=== PATIENT | male | born 1950 | race Caucasian/White ===

== ENCOUNTER 2019-08-13 08:18 | Outpatient (CLI) | payer OTHER | END 2019-08-13 08:19 | disposition EMS.NT | LOC: EMS 08:18 | PROVIDERS: ATTEND Surgery | DX: M25.562 Pain in left knee (principal); R50.9 Fever, unspecified ==

== ENCOUNTER 2019-08-13 10:03 | Emergency (ER) | payer OTHER ==
[2019-08-13 10:41] LABS: BASOPHILS % (AUTO) 0.5 %; EOSINOPHILS % (AUTO) 0.9 %; HGB - HEMOGLOBIN 13.6 g/dL (14.0-18.0); LYMPHOCYTES % (AUTO) 4.4 %; MEAN CORPUSCULAR HEMOGLOBIN 31.9 pg (27.0-31.0); MEAN CORPUSCULAR HGB CONC 34.5 g/dL (32.0-36.0); MEAN CORPUSCULAR VOLUME 92.5 fL (80.0-94.0); MEAN PLATELET VOLUME 10.3 fL (7.4-11.4); MONOCYTES % (AUTO) 4.6 %; NEUTROPHILS % (AUTO) 88.7 %; PLT - PLATELET COUNT 148 10^3/uL (130-450); RED BLOOD COUNT 4.26 10^6/uL (4.70-6.10); RED CELL DISTRIBUTION WIDTH 12.2 % (12.0-15.0); WHITE BLOOD COUNT 11.6 x10^3/uL (4.8-10.8)
[2019-08-13 10:45] LABS: ALBUMIN 3.9 g/dL (3.2-5.5); ALBUMIN/GLOBULIN RATIO 0.9 (1.0-2.2); BILIRUBIN,TOTAL 1.8 mg/dL (0.2-1.0); CREATININE 1.1 mg/dL (0.6-1.2); TOTAL PROTEIN 8.2 g/dL (6.7-8.2)
--- NOTE | 2019-08-13 10:53 | ED Physician Documentation ---
History of Present Illness - Stated complaint Stated Complaint: KNEE PX/BODY ACHES - Chief complaint Chief Complaint: Ext Problem - History obtained from History obtained from: Patient - History of Present Illness Timing: How many days ago (4) Pain level max: 9 Pain level now: 9 - Additonal information Additional information: 68-year-old male presents to the emergency department stating that he has left knee pain, swelling and a fever for the past 4 days. 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 Last was 2011. No new injuries. He states he is unable to bear any weight or move the knee at all. Worse with movement. Nothing makes it better. Review of Systems Ten Systems: 10 systems reviewed and negative Constitutional: reports: Fever, Chills Respiratory: denies: Cough GI: denies: Vomiting, Diarrhea Skin: denies: Rash Musculoskeletal: denies: Neck pain, Back pain Neurologic: denies: Headache PD PAST MEDICAL HISTORY - Past Medical History Past Medical History: Yes Cardiovascular: Hypertension Endocrine/Autoimmune: Type 2 diabetes - Past Surgical History Past Surgical History: Yes Ortho: Knee replacement - Present Medications Home Medications: Ambulatory Orders Medication Instructions Recorded Confirmed Aspirin [Adult Low Dose Aspirin EC] 81 mg PO DAILY 08/13/19 08/13/19 Lisinopril [Zestril] 20 mg PO DAILY 08/13/19 08/13/19 Metoprolol Succinate [Toprol Xl] 25 mg PO DAILY 08/13/19 08/13/19 Oseltamivir [Tamiflu] 75 mg PO BID 08/13/19 08/13/19 Simvastatin [Zocor] 80 mg PO DAILY PM 08/13/19 08/13/19 hydroCHLOROthiazide 25 mg PO DAILY 08/13/19 08/13/19 [Hydrochlorothiazide] metFORMIN [Glucophage] 1,000 mg PO DAILY PM 08/13/19 08/13/19 - Allergies Allergies/Adverse Reactions: Allergies Allergy/AdvReac Type Severity Reaction Status Date / Time No Known Drug Allergies Allergy Verified 08/13/19 10:41 PD ED PE NORMAL - Vitals Vital signs reviewed: Yes - General General: Alert and oriented X 3, No acute distress, Well developed/nourished - HEENT HEENT: PERRL, Moist mucous membranes - Neck Neck: Supple, no meningeal sign - Cardiac Cardiac: RRR, Strong equal pulses - Respiratory Respiratory: No respiratory distress, Clear bilaterally - Abdomen Abdomen: Soft, Non tender, Non distended - Derm Derm: Warm and dry, No rash - Extremities Extremities: No edema, Other (Tender to palpation with diffuse swelling about the left knee. Unable to move the knee at all. Neurovascularly intact. knee effusion) - Neuro Neuro: Alert and oriented X 3 - Psych Psych: Normal mood, Normal affect Results - Vitals Vitals: Vital Signs - 24 hr 08/13/19 08/13/19 08/13/19 10:09 10:30 11:06 Temperature 38.4 C H Heart Rate 123 H 108 H 108 H Respiratory 18 15 15 Rate Blood Pressure 162/113 H 168/88 H 154/88 H O2 Saturation 98 97 96 08/13/19 08/13/19 08/13/19 11:30 12:00 12:08 Temperature 37.6 C H Heart Rate 99 96 Respiratory 15 16 Rate Blood Pressure 167/92 H 148/72 H O2 Saturation 94 93 08/13/19 08/13/19 08/13/19 12:30 13:00 13:30 Temperature Heart Rate 91 84 81 Respiratory 15 13 15 Rate Blood Pressure 140/58 H 140/72 H 117/91 H O2 Saturation 95 96 95 08/13/19 14:00 Temperature Heart Rate 82 Respiratory 11 L Rate Blood Pressure 137/72 H O2 Saturation 97 Oxygen O2 Source Room air - Labs Labs: Laboratory Tests 08/13/19 08/13/19 08/13/19 10:23 10:23 10:23 WBC 11.6 H RBC 4.26 L Hgb 13.6 L Hct 39.4 L MCV 92.5 MCH 31.9 H MCHC 34.5 RDW 12.2 Plt Count 148 MPV 10.3 Neut # (Auto) Not Reportable Lymph # (Auto) Not Reportable Tama # (Auto) Not Reportable Eos # (Auto) Not Reportable Baso # (Auto) Not Reportable Absolute Nucleated RBC Not Reportable Total Counted 100 Band Neuts % (Manual) 15 H Reactive Lymphs % (Man) 8 Abnorm Lymph % (Manual) 0 Nucleated RBC % Not Reportable Neutrophils # (Manual) 9.7 H Lymphocytes # (Manual) 1.4 L Monocytes # (Manual) 0.5 Eosinophils # (Manual) 0.0 Basophils # (Manual) 0.0 Differential Comment MANUAL DIFFERENTIAL Manual Slide Review Indicated RBC Morph Micro Appear 1+ ANISOCYTOSIS ESR PT 12.5 INR 1.1 APTT 26.4 Sodium 129 L Potassium 3.4 L Chloride 93 L Carbon Dioxide 21 Anion Gap 15.0 H BUN 17 Creatinine 1.1 Estimated GFR (MDRD) 67 L Glucose 272 H Lactic Acid Calcium 9.0 Total Bilirubin 1.8 H AST 25 ALT 21 Alkaline Phosphatase 56 C-Reactive Protein Total Protein 8.2 Albumin 3.9 Globulin 4.3 H Albumin/Globulin Ratio 0.9 L Lipase 20 L Urine Color Urine Clarity Urine pH Ur Specific [place] Urine Protein Urine Glucose (UA) Urine Ketones Urine Occult Blood Urine Nitrite Urine Bilirubin Urine Urobilinogen Ur Leukocyte Esterase Urine RBC Urine WBC Ur Squamous Epith Cells Urine Bacteria Ur Microscopic Review Urine Culture Comments 08/13/19 08/13/19 08/13/19 10:23 10:23 10:23 WBC RBC Hgb Hct MCV MCH MCHC RDW Plt Count MPV Neut # (Auto) Lymph # (Auto) Tama # (Auto) Eos # (Auto) Baso # (Auto) Absolute Nucleated RBC Total Counted Band Neuts % (Manual) Reactive Lymphs % (Man) Abnorm Lymph % (Manual) Nucleated RBC % Neutrophils # (Manual) Lymphocytes # (Manual) Monocytes # (Manual) Eosinophils # (Manual) Basophils # (Manual) Differential Comment Manual Slide Review RBC Morph Micro Appear ESR 79 H PT INR APTT Sodium Potassium Chloride Carbon Dioxide Anion Gap BUN Creatinine Estimated GFR (MDRD) Glucose Lactic Acid 3.1 H* Calcium Total Bilirubin AST ALT Alkaline Phosphatase C-Reactive Protein 41.9 H Total Protein Albumin Globulin Albumin/Globulin Ratio Lipase Urine Color Urine Clarity Urine pH Ur Specific [place] Urine Protein Urine Glucose (UA) Urine Ketones Urine Occult Blood Urine Nitrite Urine Bilirubin Urine Urobilinogen Ur Leukocyte Esterase Urine RBC Urine WBC Ur Squamous Epith Cells Urine Bacteria Ur Microscopic Review Urine Culture Comments 08/13/19 08/13/19 11:07 13:42 WBC RBC Hgb Hct MCV MCH MCHC RDW Plt Count MPV Neut # (Auto) Lymph # (Auto) [place] # (Auto) Eos # (Auto) Baso # (Auto) Absolute Nucleated RBC Total Counted Band Neuts % (Manual) Reactive Lymphs % (Man) Abnorm Lymph % (Manual) Nucleated RBC % Neutrophils # (Manual) Lymphocytes # (Manual) Monocytes # (Manual) Eosinophils # (Manual) Basophils # (Manual) Differential Comment Manual Slide Review RBC Morph Micro Appear ESR PT INR APTT Sodium Potassium Chloride Carbon Dioxide Anion Gap BUN Creatinine Estimated GFR (MDRD) Glucose Lactic Acid 1.0 Calcium Total Bilirubin AST ALT Alkaline Phosphatase C-Reactive Protein Total Protein Albumin Globulin Albumin/Globulin Ratio Lipase Urine Color YELLOW Urine Clarity HAZY Urine pH 5.5 Ur Specific [place] >=1.030 H Urine Protein 100 H Urine Glucose (UA) >=1000 H Urine Ketones 15 H Urine Occult Blood SMALL H Urine Nitrite NEGATIVE Urine Bilirubin NEGATIVE Urine Urobilinogen 0.2 (NORMAL) Ur Leukocyte Esterase NEGATIVE Urine RBC 0-5 Urine WBC 0-3 Ur Squamous Epith Cells RARE Squamous Urine Bacteria Moderate H Ur Microscopic Review INDICATED Urine Culture Comments INDICATED - Rads (name of study) cxr Radiology: Prelim report reviewed, EMP read contemporaneously, See rad report (No acute intrathoracic plain film abnormality. ) L knee xray Radiology: Prelim report reviewed, EMP read contemporaneously, See rad report ( No evidence of fracture, dislocation, or hardware dysfunction. ) PD MEDICAL DECISION MAKING - ED course Complexity details: reviewed results, re-evaluated patient, considered differential, d/w patient ED course: Patient with a septic artificial knee joint of the left knee. Accepted by Dr. Caden Brasher at [facility] @1245, coordinated with Elias Beatty [facility]. Patient was given IV fluids, Vanco, cefepime. Blood cultures drawn. Lactate decreased after IV fluids. Patient is feeling better. Pain well controlled with Dilaudid. COBRA forms completed. This document was made in part using voice recognition software. While efforts are made to proofread this document, sound alike and grammatical errors may occur. Departure - Departure Disposition: 02 Transfer Acute Care Hosp Clinical Impression: Septic joint of left knee joint Qualifiers: Septic arthritis organism: due to unspecified organism Qualified Code(s): M00.9 - Pyogenic arthritis, unspecified Sepsis Qualifiers: Sepsis type: sepsis due to unspecified organism Sepsis acute organ dysfunction status: without acute organ dysfunction Qualified Code(s): A41.9 - Sepsis, unspecified organism Condition: Stable
[2019-08-13] MEDS ORDERED: HYDROmorphone 1 MG/ML CARPUJECT IVP STA ×2 (10:55→13:49)
[2019-08-13 10:57] LABS: INR 1.1 (0.8-1.2); PT - PROTHROMBIN TIME 12.5 secs (9.9-12.6)
[2019-08-13] MEDS ORDERED: VANCOMYCIN INJ 1.5 GM in SODIUM CHLORIDE 0.9% 500 ML IV STA (11:01)
[2019-08-13] MEDS ORDERED: CEFEPIME 2 GM in SODIUM CHLORIDE 0.9% MINIBAG 100 ML IV STA (11:01)
[2019-08-13] MEDS ORDERED: SODIUM CHLORIDE 0.9% 1,000 ML IV ONE (11:02)
[2019-08-13] MEDS ORDERED: SODIUM CHLORIDE 0.9% 3,000 ML IV ONE (11:02)
[2019-08-13] MEDS ORDERED: ACETAMINOPHEN 325 MG TABLET PO STA (11:02)
[2019-08-13 11:05] LABS: PARTIAL THROMBOPLASTIN TIME 26.4 secs (24.9-33.3)
[2019-08-13 11:09] LABS: ABNORMAL LYMPHS % (MANUAL) 0 %
[2019-08-13 11:11] LABS: BAND NEUTROPHILS % (MANUAL) 15 %; LYMPHOCYTES # (MANUAL) 1.4 10^3/uL (1.5-3.5); LYMPHOCYTES % (MANUAL) 4 %; MONOCYTES # (MANUAL) 0.5 10^3/uL (0.0-1.0)
[2019-08-13 11:12] LABS: DIFFERENTIAL COMMENT MANUAL DIFFERENTIAL; RBC MORPHOLOGY (MULTIPLE) 1+ ANISOCYTOSIS (NORMAL)
[2019-08-13 11:16] LABS: BILIRUBIN,URINE NEGATIVE (NEGATIVE); GLUCOSE, URINE (UA) >=1000 mg/dL (NEGATIVE); KETONES,URINE (UA) 15 mg/dL (NEGATIVE); LEUKOCYTE ESTERASE, URINE NEGATIVE (NEGATIVE); NITRITE,URINE NEGATIVE (NEGATIVE); OCCULT BLOOD,URINE SMALL (NEGATIVE); PH,URINE 5.5 PH (5.0-7.5); PROTEIN,URINE 100 mg/dL (NEGATIVE); UROBILINOGEN,URINE 0.2 (NORMAL) E.U./dL (NORMAL)
[2019-08-13 11:20] LABS: CLARITY,URINE HAZY (CLEAR)
[2019-08-13 11:25] LABS: BACTERIA,URINE Moderate /HPF (None Seen); RBC,URINE 0-5 /HPF (0-5); SQUAMOUS EPITHELIAL CELL,UR RARE Squamous (<= Few)
--- NOTE | 2019-08-13 11:26 | XRAY Report ---
Reason: fever Procedure Date: 08/13/2019 Accession Number: [id number] / [id number] Procedure: XR - Chest 1 View X-Ray CPT Code: 99141 Final Report FULL RESULT: EXAM: CHEST RADIOGRAPHY EXAM DATE: 08/13/2019 10:45 AM. CLINICAL HISTORY: Fever. COMPARISON: None. TECHNIQUE: 1 view. FINDINGS: Lungs/Pleura: No focal opacities evident. No pleural effusion. No pneumothorax. Mediastinum: Within exam limitations, the cardiomediastinal contour is normal. Other: None. IMPRESSION: No acute intrathoracic plain film abnormality. RADIA
--- NOTE | 2019-08-13 11:36 | XRAY Report ---
Reason: L knee pain, swelling Procedure Date: 08/13/2019 Accession Number: [id number] / [id number] Procedure: XR - Knee 2 View LT CPT Code: Final Report FULL RESULT: EXAM: LEFT KNEE RADIOGRAPHY EXAM DATE: 08/13/2019 11:26 AM. CLINICAL HISTORY: L knee pain, swelling. COMPARISON: None. TECHNIQUE: 2 views. FINDINGS: Bones: No acute fracture or focal bony lesion. Joints: Status post longstem arthroplasty. No evidence of hardware dysfunction. There may be a suprapatellar joint effusion. Soft Tissues: No unexpected soft tissue findings. IMPRESSION: No evidence of fracture, dislocation, or hardware dysfunction. RADIA
[2019-08-13 15:42] VITALS: BP 132/84
== END 2019-08-13 15:46 | disposition short-term general hospital (02) ==
LOC: ED 10:03
DX: A41.9 Sepsis, unspecified organism (principal); T84.54XA Infection and inflammatory reaction due to internal left knee prosthesis, initial encounter; M00.9 Pyogenic arthritis, unspecified; I10 Essential (primary) hypertension; E11.9 Type 2 diabetes mellitus without complications; Z79.84 Long term (current) use of oral hypoglycemic drugs
CPT/HCPCS: 36415; 71045; 73560; 80053; 81001; 83605; 83690; 85025; 85610; 85651; 85730; 86140; 87040; 87086; 96365; 96366; 96368; 96375; 96376; 99284; 99285; A9270; J1170; J3370; 81003

== ENCOUNTER 2020-06-21 16:17 | Emergency (ER) | payer OTHER ==
--- NOTE | 2020-06-21 17:06 | ED Physician Documentation ---
History of Present Illness - Stated complaint Stated Complaint: HBP - Chief complaint Chief Complaint: Cardiac - History obtained from History obtained from: Patient - Additonal information Additional information: 69-year-old gentleman with hypertension, he takes 40 mg of lisinopril once a day, 25 mg of hydrochlorothiazide once a day, 25 mg of metoprolol once a day. They have noticed that on the last 2 times at home health has been out his blood pressure has been high. He is asymptomatic. No chest pain, trouble breathing, pedal edema, urinary complaints. Review of Systems Constitutional: denies: Fever, Chills Nose: denies: Rhinorrhea / runny nose Throat: denies: Sore throat Cardiac: denies: Chest pain / pressure, Palpitations Respiratory: denies: Dyspnea, Cough PD PAST MEDICAL HISTORY - Past Medical History Cardiovascular: Hypertension Endocrine/Autoimmune: Type 2 diabetes - Past Surgical History Past Surgical History: Yes Ortho: Knee replacement - Present Medications Home Medications: Ambulatory Orders Medication Instructions Recorded Confirmed Aspirin [Adult Low Dose Aspirin EC] 81 mg PO DAILY 08/13/19 06/21/20 Lisinopril [Zestril] 40 mg PO DAILY 08/13/19 06/21/20 Metoprolol Succinate [Toprol Xl] 25 mg PO DAILY 08/13/19 06/21/20 Simvastatin [Zocor] 80 mg PO DAILY PM 08/13/19 06/21/20 hydroCHLOROthiazide 50 mg PO DAILY 08/13/19 06/21/20 [Hydrochlorothiazide] metFORMIN [Glucophage] 1,000 mg PO DAILY PM 08/13/19 06/21/20 - Allergies Allergies/Adverse Reactions: Allergies Allergy/AdvReac Type Severity Reaction Status Date / Time No Known Drug Allergies Allergy Verified 06/21/20 16:56 - Social History Does the pt smoke?: No Smoking Status: Never smoker Does the pt drink ETOH?: Yes Does the pt have substance abuse?: No - Immunizations Immunizations: TDAP >10years/unknown PD ED PE NORMAL - Vitals Vital signs reviewed: Yes - General General: Alert and oriented X 3, No acute distress - Cardiac Cardiac: RRR, No murmur - Respiratory Respiratory: No respiratory distress, Clear bilaterally - Abdomen Abdomen: Non tender - Extremities Extremities: No edema, No calf tenderness / cord - Neuro Neuro: Alert and oriented X 3, Normal speech Results - Vitals Vitals: Vital Signs - 24 hr 06/21/20 16:45 Temperature 36.7 C Heart Rate 68 Respiratory 16 Rate Blood Pressure 188/97 H O2 Saturation 99 Oxygen O2 Source Room air - EKG (time done) 1706 Rate: Rate (enter#) (63) Rhythm: NSR [place]: Normal Intervals: Normal IA QRS: Normal Ischemia: Non specific changes Computer interpretation: Agree with computer - Labs Labs: Laboratory Tests 06/21/20 17:24 Sodium 137 Potassium 3.9 Chloride 99 L Carbon Dioxide 24 Anion Gap 14.0 H BUN 20 Creatinine 0.8 Estimated GFR (MDRD) 96 Glucose 172 H Calcium 10.0 Magnesium 1.9 PD MEDICAL DECISION MAKING - ED course ED course: 69-year-old pao has established hypertension which is out of control. No worrisome symptoms or findings on exam or labs or EKG. Departure - Departure Disposition: 01 Home, Self Care Clinical Impression: Hypertension Qualifiers: Hypertension type: essential hypertension Qualified Code(s): I10 - Essential (primary) hypertension Condition: Good Record reviewed to determine appropriate education?: Yes Instructions: ED HTN Established Comments: Labs and EKG look good. I think at this point you can simply double your metoprolol from once a day to twice a day. Follow-up with your doctor later this week for recheck and further medication management. Return for worrisome symptoms.
[2020-06-21 17:42] LABS: CREATININE 0.8 mg/dL (0.6-1.2); MAGNESIUM 1.9 mg/dL (1.7-2.8)
[2020-06-21 18:03] VITALS: BP 187/88
== END 2020-06-21 18:07 | disposition home or self-care (01) ==
LOC: ED 16:17
DX: I10 Essential (primary) hypertension (principal); E11.9 Type 2 diabetes mellitus without complications; Z79.84 Long term (current) use of oral hypoglycemic drugs; Z79.82 Long term (current) use of aspirin
CPT/HCPCS: 36415; 80048; 83735; 93005; 99283